=== PATIENT | female | born 1945 | race Two or more races ===

== ENCOUNTER → 2017-10-31 | Emergency (ER) | payer OTHER ==
[~2017-10-31] VITALS: Ht 147.3 cm; Wt 68.0 kg
[~2017-10-31] MED LIST: BUDESONIDE0.5 MG/2 M IH; CARDIZEM30 MG PO; COZAAR50 MG; DULERA; GLIMEPIRIDE1 MG; LEVAQUIN750 MG PO; METFORMIN HCL500 MG PO; METHYLPRED4 MG/DOSE- PO; PRILOSEC40 MG PO; PROVENTIL0.5 ML/2.5 IH; TESSALON200 MG PO; THEOPHYLLINE400 MG PO; ULTRAM50 MG PO
== END | disposition home or self-care (01) ==
LOC: ER 09:07
DX: J45.998 Other asthma (principal); J11.1 Influenza due to unidentified influenza virus with other respiratory manifestations